=== PATIENT | male | born 1965 | race Caucasian/White ===

== ENCOUNTER 2022-10-26 12:05 | Emergency (ER) | payer MEDICAID, OTHER ==
[2022-10-26 12:12] VITALS: BP 159/90
--- NOTE | 2022-10-26 13:14 | ED Physician Documentation ---
History of Present Illness - Stated complaint Stated Complaint: COLD FINGERS/TOES,SIDE PX - Chief complaint Chief Complaint: Ext Problem - History obtained from History obtained from: Patient - Additonal information Additional information: The patient comes to the emergency department with chief complaint Fingertips and toes turning white and going numb and cold. He states that it mostly happens during the wintertime and has been happening for years but seems to be getting worse. He states that it happens if his fingers get cold or if he touches something cold. He states that if he waits for a while, it goes away on its own. The patient states is not happening right now. He does not have a doctor and just thought he come here to get checked out. He states he is also worried that he might have diabetes because his father had a. He is concerned because his father of an OR and was told he had heart disease prior because of his diabetes. The patient denies any other symptoms and states overall he feels fairly well. No other complaints at this time. PD PAST MEDICAL HISTORY - Allergies Allergies/Adverse Reactions: Allergies Allergy/AdvReac Type Severity Reaction Status Date / Time No Known Drug Allergies Allergy Verified 10/26/22 12:09 PD ED PE NORMAL - Vitals Vital signs reviewed: Yes - General General: Alert and oriented X 3, No acute distress, Well developed/nourished - HEENT HEENT: Atraumatic, PERRL, EOMI, Moist mucous membranes - Neck Neck: Supple, no meningeal sign - Cardiac Cardiac: RRR, No murmur, Strong equal pulses - Respiratory Respiratory: No respiratory distress, Clear bilaterally - Derm Derm: Warm and dry - Extremities Extremities: No deformity - Neuro Neuro: Alert and oriented X 3 - Psych Psych: Normal mood, Normal affect Results - Vitals Vitals: Vital Signs - 24 hr 10/26/22 12:09 Temperature 36.8 C Heart Rate 63 Respiratory 16 Rate Blood Pressure 159/90 H O2 Saturation 98 Oxygen O2 Source Room air - Labs Labs: Laboratory Tests 10/26/22 13:14 POC Whole Bld Glucose 87 PD Medical Decision Making - ED course Complexity details: reviewed results, re-evaluated patient, considered differential, d/w patient ED course: I discussed with the patient that most likely he has Raynaud's phenomenon, and that stopping smoking would be a good way to improve the progression of this overall. We discussed that during an acute episode, he should warm his hands up and this will help the episode to resolve. Fingerstick glucose was obtained in the emergency department. Departure - Departure Disposition: 01 Home, Self Care Clinical Impression: Raynauds phenomenon Qualifiers: Raynaud?s-associated gangrene presence: without gangrene Qualified Code(s): I73.00 - Raynaud's syndrome without gangrene Condition: Stable Instructions: Raynaud Disease Comments: Your blood sugar is normal at 87. Your symptoms sound most consistent with Raynaud's phenomenon, which tends to be episodic and often triggered by cold. To help with an acute attack, you should immediately warm your fingers, though it is best as far as prevention to keep them from getting cold in the first place if possible. For long-term prevention, quitting smoking has been shown to be helpful. Please get established with primary care for your baseline medical care and health maintenance.
== END 2022-10-26 13:43 | disposition home or self-care (01) ==
LOC: ED 12:05
DX: I73.00 Raynaud's syndrome without gangrene (principal)
CPT/HCPCS: 99282; 99283